=== PATIENT | male | born 1945 | race Caucasian/White ===

== ENCOUNTER → 2021-01-30 | Outpatient (CLI) | payer OTHER ==
--- NOTE | 2021-01-30 16:01 | 2DMMODE ---
[facility] [place] [address] 2 D/M-MODE ECHOCARDIOGRAM Name: JUNE WARD Room #: REG KELTONAleah Lopez#: [id number] Admission: 01/30/21 Attend Phys: Phi Velasquez Discharge: Date of : 45 Report #: [id number] THIS REPORT FOR: cc: Phi Juarez Francisco J. MD ~ APPROVED REPORT Study performed: 01/30/2021 12:15:38 EXAM: Comprehensive 2D, Doppler, and color-flow Echocardiogram Patient Location: Out-Patient Room #: 2 Status: routine BSA: 2.15 HR: 66 bpm BP: 134/78 mmHg Rhythm: NSR Other Information Study Quality: Good Indications Chest Pain 2D Dimensions RVDd: 38.16 mm IVSd: 10.73 (7-11mm) LVOT Diam: 23.31 (18-24mm) LVDd: 54.64 mm PWd: 11.21 (7-11mm) Ascending Ao: 32.89 (22-36mm) LVDs: 43.24 (25-40mm) Left Atrium: 40.09 (27-40mm) Aortic Root: 31.27 mm Volumes Left Atrial Volume (Systole) Single Plane 4CH: 59.27 mL Single Plane 2CH: 65.60 mL LA ESV Index: 32.00 mL/m2 Aortic Valve AoV Peak Shane.: 1.28 m/s AO Peak Gr.: 6.51 mmHg LVOT Max P.99 mmHg LVOT Max V: 1.00 m/s ASHLEY Vmax: 3.[address] [facility] [address] [place] [address] 2 D/M-MODE ECHOCARDIOGRAM Name: JUNE WARD Room #: REG CL [facility]#: [id number] Admission: 01/30/21 Attend Phys: Phi Colon Discharge: Date of : 45 Report #: [id number] Mitral Valve E/A Ratio: 0.5 MV Decel. Time: 327.69 ms MV E Max Shane.: 0.41 m/s MV A Shane.: 0.75 m/s MV PHT: 95.03 ms IVRT: 175.32 ms Pulmonary Valve PV Peak Shane.: 1.15 m/s PV Peak Gr.: 5.25 mmHg Pulmonary Vein P Vein S: 0.47 m/s P Vein A: 0.24 m/s P Vein D: 0.26 m/s P Vein A Dur.: 129.2 msec P Vein S/D Ratio: 1.81 Left Ventricle The left ventricle is normal size. There is mild inferior wall hypokinesis There is normal left ventricular wall thickness. Left ventricular systolic function is mildly decreased. LVEF is 45%. Grade I - abnormal relaxation pattern. Right Ventricle The right ventricle is normal size. The right ventricular systolic function is normal. Atria The left atrium size is normal. The right atrium size is normal. Aortic Valve The aortic valve is normal in structure. No aortic regurgitation is present. There is no aortic valvular stenosis. Mitral Valve The mitral valve is normal in structure. Trace mitral regurgitation. No evidence of mitral valve stenosis. Tricuspid Valve The tricuspid valve is normal in structure. There is no tricuspid valve regurgitation noted. Pulmonic Valve The pulmonary valve is normal in structure. There is no pulmonic valvular regurgitation. [facility] [address] [place] [address] 2 D/M-MODE ECHOCARDIOGRAM Name: JUNE WARD Room #: REG John#: [id number] Admission: 01/30/21 Attend Phys: Phi Colon Discharge: Date of : 45 Report #: [id number] Great Vessels The aortic root is normal in size. IVC is normal in size and collapses >50% with inspiration. Pericardium There is no pericardial effusion. <Conclusion> The left ventricle is normal size. There is normal left ventricular wall thickness. There is mild inferior wall hypokinesis LVEF is 45%. The left atrium size is normal. The aortic valve is normal in structure. The mitral valve is normal in structure. Trace mitral regurgitation. The tricuspid valve is normal in structure. The pulmonary valve is normal in structure. The aortic root is normal in size. There is no pericardial effusion. <ELECTRONICALLY SIGNED> By: Saeed Magallon MD 01/30/211600 00 00 Saeed Magallon MD /INF
== END ==
LOC: RAD 13:05
PROVIDERS: ATTEND Chiropractor
DX: I25.9 Chronic ischemic heart disease, unspecified (principal)